=== PATIENT | male | born 1950 | race Caucasian/White ===

== ENCOUNTER 2023-01-27 07:55 | Outpatient (CLI) | payer MEDICARE, SELFPAY ==
--- NOTE | ~2023-01-27 | US_ITS ---
EXAMINATION: US aorta [facility] DATE: 01/27/2023 09:01 INDICATION: Abdominal aortic aneurysm. TECHNIQUE: Grayscale, color Doppler, and pulsed Doppler images of the aorta and common iliac arteries were obtained. COMPARISON: None. FINDINGS: The proximal aorta is poorly visualized but measuring approximately 2.5 cm. The mid aorta measures 2. 1 cm. The distal aorta measures up to 2.4 cm. The right common iliac artery measures 1.9 cm. The left common iliac artery measures 1.2 cm. IMPRESSION: 1. Normal caliber abdominal aorta. 2. Ectatic right common iliac artery measuring up to 1.9 cm. Reviewed, dictated and finalized at location A.
--- NOTE | ~2023-01-27 | CT_ITS ---
CT Scan of the Chest without Contrast: Clinical Indication: Lung cancer screening, personal history of nicotine dependence Technique: Contiguous sections were acquired throughout the chest without intravenous contrast. Dose reduction technique was used on this scan by utilizing automated exposure control and iterative recon struction technique. The dose-length product (DLP) was 95.09 mGy-cm. Findings: There is no evidence of any significant mediastinal, hilar or axillary lymphadenopathy. Calcified rig ht hilar lymph nodes are present. Atherosclerotic calcifications of the aorta and coronary arteries a re present. There is no evidence of pleural or pericardial effusion. Calcified right lower lobe granulomas present. Images through the upper abdomen reveal no abnormalities. Impression: Lung RADS 2: Benign appearance. 12 month follow-up screening CT advised. Reviewed, dictated and finalized at location . Impression: Lung RADS 2: Benign appearance. 12 month follow-up screening CT advised.
--- NOTE | ~2023-01-27 | US_ITS ---
EXAMINATION: US carotid duplex BI DATE: 01/27/2023 09:08 INDICATION: Carotid bruit TECHNIQUE: Grayscale, color Doppler, and pulsed Doppler images of the cervical carotid arteries were obtained. The degree of vessel stenosis is placed in one of the following categories: normal, <50%, 5 0-69%, >=70% but less than near-occlusion, near-occlusion, or total occlusion. Note that percent sten osis relative to normal distal artery lumen diameter is indirectly measured from velocity measurement s as described by Ron, et al. Radiology 2003; 229:340-346. COMPARISON: None. FINDINGS: RIGHT: The right common carotid artery (CCA) peak systolic velocity (PSV) is 109 cm/s. The right internal ca rotid artery (ICA) PSV is 86 cm/s. The right ICA end-diastolic velocity (EDV) is 33 cm/s. The right I CA/CCA PSV ratio is 0.8. Grayscale and color Doppler images yield an estimate of <50% diameter reduct ion from plaque in the ICA. The external carotid artery (ECA) PSV is 89 cm/s. There is antegrade flow in the right vertebral artery. LEFT: The left CCA PSV is 142 cm/s. The left ICA PSV is 121 cm/s. The left ICA EDV is 40 cm/s. The left ICA /CCA PSV ratio is 0.8. Grayscale and color Doppler images yield an estimate of <50% diameter reductio n from plaque in the ICA. The ECA PSV is 51 cm/s. There is antegrade flow in the left vertebral arter y. IMPRESSION: 1. <50% stenosis in the right internal carotid artery. 2. <50% stenosis in the left internal carotid artery. Reviewed, dictated and finalized at location A.
== END 2023-01-27 07:56 | disposition home or self-care (01) ==
PROVIDERS: PCP Internal Medicine; Visit Provider Internal Medicine
DX: Z12.2 Encounter for screening for malignant neoplasm of respiratory organs (principal); Z87.891 Personal history of nicotine dependence; R09.89 Other specified symptoms and signs involving the circulatory and respiratory systems; I65.23 Occlusion and stenosis of bilateral carotid arteries; I77.89 Other specified disorders of arteries and arterioles
CPT/HCPCS: 71271; 76706; 93880

== ENCOUNTER 2023-05-05 08:50 | Outpatient (CLI) | payer MEDICARE, SELFPAY ==
--- NOTE | 2023-05-05 08:56 | ECG_ITS ---
Measurements Intervals [place] Rate: 74 P: 72 HI: 175 QRS: 68 QRSD: 78 T: 50 QT: 362 QTc: 404 Interpretive Statements SINUS RHYTHM NORMAL ECG NO PREVIOUS ECG AVAILABLE FOR COMPARISON Electronically Signed On 05-05-2023 18:21:42 CDT by Terry Frederick M.D.
== END 2023-05-05 08:51 | disposition home or self-care (01) ==
LOC: CHSCARD 08:52
PROVIDERS: PCP Internal Medicine; Visit Provider Internal Medicine Cardiovascular Disease
DX: I25.10 Atherosclerotic heart disease of native coronary artery without angina pectoris (principal)
CPT/HCPCS: 93005

== ENCOUNTER 2024-02-11 09:49 | Outpatient (CLI) | payer MEDICARE, SELFPAY ==
--- NOTE | ~2024-02-11 | CT_ITS ---
CT Scan of the Chest without Contrast: Clinical Indication: Lung cancer screening, nicotine dependence Technique: Contiguous sections were acquired throughout the chest without intravenous contrast. Dose reduction technique was used on this scan by utilizing automated exposure control and iterative recon struction technique. The dose-length product (DLP) was 98.41 mGy-cm. COMPARISON: 01/27/2023 Findings: There is no evidence of any significant mediastinal, hilar or axillary lymphadenopathy. Calcified rig ht hilar lymph node present. There are atherosclerotic calcifications of the aorta and coronary arter ies. There is no evidence of pleural or pericardial effusion. 4 mm right upper lobe groundglass nodule noted (axial image 30). Calcified right lower lobe granuloma present. Images through the upper abdomen reveal no abnormalities. Impression: Lung RADS 2: Benign appearance. 12 month follow-up screening CT advised. Reviewed, dictated and finalized at [facility]. Impression: Lung RADS 2: Benign appearance. 12 month follow-up screening CT advised.
== END 2024-02-11 09:50 | disposition home or self-care (01) ==
LOC: ANHIMG 09:52
PROVIDERS: PCP Internal Medicine; Visit Provider Internal Medicine
DX: Z12.2 Encounter for screening for malignant neoplasm of respiratory organs (principal); Z87.891 Personal history of nicotine dependence
CPT/HCPCS: 71271

== ENCOUNTER 2024-02-23 08:30 | Outpatient (CLI) | payer MEDICARE, SELFPAY ==
--- NOTE | ~2024-02-23 | US_ITS ---
EXAMINATION: US aorta DATE: 02/23/2024 09:54 INDICATION: Iliac aneurysm. TECHNIQUE: Grayscale, color Doppler, and pulsed Doppler images of the aorta and common iliac arteries were obtained. COMPARISON: Ultrasound 01/27/2023 FINDINGS: The aorta is normal in caliber. The right common iliac artery is normal in caliber. The left common i liac artery is normal in caliber. There is atherosclerosis of the aorta and common iliac arteries. IMPRESSION: 1. No aneurysm. Reviewed, dictated and finalized at location A. IMPRESSION: 1. No aneurysm.
== END 2024-02-23 08:31 | disposition home or self-care (01) ==
PROVIDERS: PCP Internal Medicine; Visit Provider Internal Medicine
DX: I72.3 Aneurysm of iliac artery (principal)
CPT/HCPCS: 76775

== ENCOUNTER 2025-05-15 10:20 | Outpatient (CLI) | payer MEDICARE, SELFPAY ==
--- NOTE | ~2025-05-15 | CT_ITS ---
EXAMINATION:CT lung screening DATE: 05/15/2025 10:44 INDICATION: Personal history of nicotine dependence. TECHNIQUE: Computed tomography (CT) of the chest was performed without intravenous contrast. Automated exposure control and iterative reconstruction technique were employed. The dose-length product (DLP) was 77.38 mGy-cm. COMPARISON: Chest CT 02/11/2024 FINDINGS: There is mild emphysema. Calcified right lung nodules and calcified right hilar lymph nodes are consistent with old granulomatous disease. There are a few scattered 2 mm nodules. No pleural effusion. The heart size is normal. There are coronary artery calcifications. No pericardial effusion. Calcifications in the spleen are consistent with old granulomatous disease. There is severe cervical spondylosis. There is mild chronic anterior wedging of multiple vertebral bodies. IMPRESSION: 1. Lung-RADS category 2: Benign appearance or behavior. Continue annual screening with noncontrast low-dose chest CT in 12 months. Reviewed, dictated and finalized at location E. IMPRESSION: 1. Lung-RADS category 2: Benign appearance or behavior. Continue annual screeni ng with noncontrast low-dose chest CT in 12 months.
--- OUTSIDE RECORDS SUMMARY | 2025-05-15 11:47 | XMS_ITS | Clinical Summary ---
Author Organization [facility] Address [address], [address] [address] Phone Care Team Providers Care Biology Specimen Technician Name Role Phone Trinity Santana MD Primary Care Provider [phone] Allergies No known active allergies Medications Multiple Vitamin (ONE-A-DAY MENS PO) Take 1 Tab by mouth daily. Active rosuvastatin (CRESTOR) 10 MG Tablet Take 10 mg by mouth daily. Active Family History Medical History Relation Name Comments Cancer Brother esophageal Other-comment Father enlarged heart Diabetes Mother Hypertension Mother Tuberculosis Paternal Grandfather Cancer Sister 1 Breast Diabetes Sister 1 Multiple Sclerosis Sister 2 Relation Name Status Comments Brother Father Mother Paternal Grandfather Sister 1 Alive Sister 2 Social History Tobacco Use Types Packs/Day Years Used Date Smoking Tobacco: Every Day Cigarettes 1 30 Smokeless Tobacco: Never Tobacco Cessation:Ready to Q uit: No; Counseling Given: Yes Alcohol Use Standard Drinks/Week Comments Yes 0 (1 standard drink = 0.6 oz pur e alcohol) rarely Sex and Gender Information Value Date Recorded Sex Assigned at Not on file Legal Sex Male 7:15 AM 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/INTENSIVIST Gender Identity Not on file Sexual Orientation Not on file Last Filed Vital Signs Vital Sign Reading Time Taken Comments Blood Pressure 90/62 07/04/2019 10:18 AM 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/INTENSIVIST Pulse 66 07/04/2019 10:18 AM 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/INTENSIVIST Temperature 36 C (96.8 F) 07/04/2019 10:18 AM 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/INTENSIVIST Respiratory Rate 17 07/04/2019 10:18 AM 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/INTENSIVIST Oxygen Saturation 99% 07/04/2019 10:18 AM 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/INTENSIVIST Inhaled Oxygen Concentration - - Weight 68 kg (150 lb) 06/21/2019 1:00 PM 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/INTENSIVIST Height 177.8 cm (5' 10) 06/21/2019 1:00 PM 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/INTENSIVIST Body Mass Index 21.52 06/21/2019 1:00 PM 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/INTENSIVIST Plan of Treatment Health Maintenance Due Date Last Done Comments Hepatitis C Virus (HCV) Screening 1950 TdaP Immunization 1950 Cologuard 1997 Immunochemical Fecal Occult Blood 1997 Pneumococcal Immunization (5 0+ years) (1 of 1 - PCV) 2002 Zoster Immunization (1 of 2) 2002 Medicare Initial AWV [id number] 09/16/2018 Colonoscopy 07/04/2020 07/04/2019 Colorectal Cancer Screening 07/04/2020 Influenza Immunization (#1) 2025 SARS-COV-2 Immunization ( - season) 2025 Respiratory Syncytial Virus (RSV) Immunization (Adult) (1 - 1-dose 75+ series) 10/18/2027 Hepatitis B Immunization Aged Out No longer eligible based on patient's age to complete this topic Human Papillomavirus (HPV) Immunization Aged Out No longer eligible b ased on patient's age to complete this topic Meningococcal Immunization (ACWY) Aged Out No longer eligible based on patient's age to complete this topic Rotavirus Immunization Aged Out No lo nger eligible based on patient's age to complete this topic Insurance MEDICARE Care Teams Biology Specimen Technician Relationship Specialty Start Date End Date Trinity Santana MD [address] [place] [address] PCP - General Internal Medicine 07/04/19
== END 2025-05-15 10:21 | disposition home or self-care (01) ==
PROVIDERS: PCP Internal Medicine; Visit Provider Internal Medicine
DX: Z12.2 Encounter for screening for malignant neoplasm of respiratory organs (principal); Z87.891 Personal history of nicotine dependence
CPT/HCPCS: 71271